=== PATIENT | female | born 1960 | race Caucasian/White ===

== ENCOUNTER 2018-12-17 17:08 | Emergency (ER) | payer MEDICAID ==
[~2018-12-17] VITALS: Ht 165.1 cm; Wt 71.6 kg
[~2018-12-17 17:08] MED LIST: CEPH-443 PO
[2018-12-17 17:26] VITALS: Ht 165.1 cm; Wt 71.6 kg
[2018-12-17] MEDS ORDERED: SOD CHLORIDE 0.9% 1,000 ML IV STA ×2 (18:54→19:08)
--- NOTE | 2018-12-17 19:25 | ERD ---
ER Documentation Chief Complaint Chief Complaint right abdominal pain x 5 days HPI This is a very pleasant 58-year-old female with a remote history of right breast carcinoma status post mastectomy diagnosed in 2012 on hormone replacement that presents to the emergency department complaining of right upper quadrant pain for the past 5 days. She states that the pain is been intermittent. It radiates to the tip of her right scapula. There is no alleviating or exacerbating factors to the pain. She also states that she has had episodes of diaphoresis on her hands and face. This is worsened when she experiences the pain. She states when the pain occurs it is 8 out of 10 in intensity. She never had any similar pain in the past. She has no shortness of breath. No weight loss. No hemoptysis no hematemesis no melanotic stools. She did not take any analgesic medication prior to arrival. No changes in her medication. ROS All systems reviewed and are negative except as per history of present illness. Medications Home Meds Active Scripts Cephalexin* (Keflex*) 500 Mg Capsule, 500 MG PO QID for 7 Days, CAP Prov:ALAN IZAGUIRRE MD 12/17/18 Allergies Allergies: Coded Allergies: No Known Allergy (Unverified , 12/17/18) PMhx/Soc History of Surgery: Yes (R lumpectomy) Anesthesia Reaction: No Hx Miscellaneous Medical Probl: Yes (Hx breast cancer) Hx Alcohol Use: No Hx Substance Use: No Hx Tobacco Use: No Smoking Status: Never smoker Physical Exam Vitals Vital Signs Date Temp Pulse Resp B/P (MAP) Pulse Ox O2 O2 Flow FiO2 Time Delivery Rate 12/17/18 98.5 72 16 122/64 98 Room Air 19:25 (83) 12/17/18 98.4 90 18 124/66 98 17:26 (85) Physical Exam Constitutional:Well-developed. Well-nourished. HEENT:Normocephalic. Atraumatic.Pupils were equal round reactive to light. Moist mucous membranes.No tonsillar exudates. Neck: No nuchal rigidity. No lymphadenopathy. No posterior cervical spine tenderness or step-offs. Respiratory: Not using accessory muscles of respiration.Lungs were clear to auscultation bilaterally. No rhonchi. No rales. No wheezing. Cardiovascular: Regular rate regular rhythm.No murmurs. No rubs were appreciated.S1, S2 normal. Distal pulses are palpable 2+ bilaterally. GI: Abdomen was soft. Right upper quadrant tenderness with negative Bar sign. No tenderness the right lower quadrant over McBurney's point. Psoas sign negative. Obturator sign negative.. Non Distended. No pulsatile abdominal masses or bruits. No rebound. No guarding. Bowel sounds were present and normal. Muscle skeletal: Full range of motion of both the upper and lower extremities bilaterally.Normal muscle tone.No assymetrical calf tenderness or swelling. Skin: No petechia, no purpura. No lesions on the palms or the soles of the feet. No maculopapular rash. NEURO: Patient was alert, awake, orientated x3.No facial droop. Gait observed and normal with no ataxia.Speech had regular rate and rhythm. No focal neurological deficits. Result Diagram: 12/17/18192312/17/181923 Results 24 hrs Laboratory Tests Test 12/17/18 19:24 12/17/18 22:44 White Blood Count 3.9 10^3/ul Red Blood Count 4.19 10^6/ul Hemoglobin 12.0 g/dl Hematocrit 37.6 % Mean Corpuscular Volume 89.7 fl Mean Corpuscular Hemoglobin 28.6 pg Mean Corpuscular Hemoglobin Concent 31.9 g/dl Red Cell Distribution Width 12.7 % Platelet Count 241 10^3/UL Mean Platelet Volume 9.7 fl Immature Granulocytes % 0.300 % Neutrophils % 52.7 % Lymphocytes % 32.8 % Monocytes % 11.1 % Eosinophils % 2.6 % Basophils % 0.5 % Nucleated Red Blood Cells % 0.0 /100WBC Immature Granulocytes # 0.010 10^3/ul Neutrophils # 2.0 10^3/ul Lymphocytes # 1.3 10^3/ul Monocytes # 0.4 10^3/ul Eosinophils # 0.1 10^3/ul Basophils # 0.0 10^3/ul Nucleated Red Blood Cells # 0.0 10^3/ul Prothrombin Time 13.3 Sec Prothrombin Time Ratio 1.0 INR International Normalized Ratio 1.00 Activated Partial Thromboplast Time 27.7 Sec Sodium Level 141 mmol/L Potassium Level 3.4 mmol/L Chloride Level 105 mmol/L Carbon Dioxide Level 32 mmol/L Anion Gap 4 Blood Urea Nitrogen 9 mg/dl Creatinine 0.73 mg/dl Est Glomerular Filtrat Rate mL/min > 60 mL/min Glucose Level 95 mg/dl Calcium Level 9.8 mg/dl Total Bilirubin 0.5 mg/dl Direct Bilirubin 0.00 mg/dl Indirect Bilirubin 0.5 mg/dl Aspartate Amino Transf (AST/SGOT) 21 IU/L Alanine Aminotransferase (ALT/SGPT) 22 IU/L Alkaline Phosphatase 70 IU/L Troponin I < 0.012 ng/ml Total Protein 7.2 g/dl Albumin 3.9 g/dl Globulin 3.30 g/dl Albumin/Globulin Ratio 1.18 Amylase Level 90 U/L Lipase 108 U/L Free Thyroxine Index 2.23 ug/ml Thyroxine (T4) 7.6 ug/dl Triiodothyronine (T3) Uptake 29.3 % Urine Color STRAW Urine Clarity CLEAR Urine pH 6.0 Urine Specific [place] 1.004 Urine Ketones NEGATIVE mg/dL Urine Nitrite NEGATIVE mg/dL Urine Bilirubin NEGATIVE mg/dL Urine Urobilinogen NEGATIVE mg/dL Urine Leukocyte Esterase 2+ Alee/ul Urine Microscopic RBC 2 /HPF Urine Microscopic WBC 28 /HPF Urine Hemoglobin NEGATIVE mg/dL Urine Glucose NEGATIVE mg/dL Urine Total Protein NEGATIVE mg/dl Current Medications Medications Dose Sig/Get[place]w Start Time Status Last (Trade) Ordered Route PRN Stop Time Admin Dose Reason Admin Sodium 1,000 ml @ Q1H STAT 12/17/18 DC 12/17/18 Chloride 1,000 mls/hr IV 18:54 19:25 12/17/18 19:53 Sodium 1,000 ml @ Q1H STAT 12/17/18 DC Chloride 1,000 mls/hr IV 19:08 12/17/18 20:07 Procedures/MDM The patient presented to the emergency department with epigastric pain. My differential diagnosis included but was not limited to abdominal aortic aneurysm, choledocholithiasis, gallstone ileus, renal colic, pyelonephritis, pancreatitis, peptic ulcer disease, atypical myocardical infarction, mesenteric ischemia, GERD, pulmonary infarction. The patient was placed on a carpenter foreman, continuous pulse oximetry and IV access was established by nursing staff. The patient was given intravenous fluids and Toradol. An EKG was obtained to rule out myocardial ischemia. There was no elevation of LFTs to suggest ductal obstruction, cholangitis, cholecystiitis or hepatitis. Given that the urinalysis did not show bilirubinuria, my suspicion for common duct obstruction or hepatitis was low. 12 Lead EKG tracing ordered and reviewed by myself showed: Sinus bradycardia 55 bpm and no arrhythmia. MO interval normal. QRS duration normal with low voltage No ST segment elevation No ST segment depression. No changes consistent with acute ischemia. The patient had no leukocytosis. There is no abnormalities of the patient's thyroid. Indicated the patient that the diaphoresis and her symptoms could be resolved of hormonal changes that she currently is taking hormones and indicates she states she will feel comfortable following up with her primary care physician. Regarding the epigastric pain there did not appear to be an acute life-threatening etiology. However I did feel the patient will benefit from an outpatient upper endoscopy. The patient had a urinary tract infection will be sent home with hemant Camacho The patient was discharged home in fair condition. They were instructed to return to the emergency department at any time if there was any worsening of their condition. The patient stated they would follow up with their PCP in the next 24-48 hours to initiate a suitable medication regimen under the care of their PCP as well as to allow their PCP to monitor any drug reactions. The patient was discharged home with prescriptions after they gave informed consent to the new medication. They were also fully informed by myself on the adverse effects and adverse drug interactions in order to provide adequate safeguards to prevent possible adverse reactions to medications. Departure Diagnosis: Primary Impression: Epigastric pain Additional Impression: Urinary tract infection Urinary tract infection type: acute cystitis Hematuria presence: without hematuria Qualified Codes: N30.00 - Acute cystitis without hematuria Condition: ALAN Nava MD Dec 17, 2018 19:25
[2018-12-17 23:33] VITALS: BP 109/57; PULSE 54; RESP 18
== END 2018-12-17 23:38 | disposition home or self-care (01) ==
LOC: E/R 17:08
DX: N30.00 Acute cystitis without hematuria (principal); Z85.3 Personal history of malignant neoplasm of breast
CPT/HCPCS: 36415; 76705; 80053; 81001; 82150; 83690; 84436; 84479; 84484; 85025; 85610; 85730; 87086; 93005; J7030; Z7502